=== PATIENT | male | born 1955 | race Two or more races ===

== ENCOUNTER 2023-05-14 21:27 | Emergency (ER) | payer MEDICARE, OTHER ==
[~2023-05-14] VITALS: Ht 175.3 cm; Wt 110.0 kg
[2023-05-15] MEDS ORDERED: ONDANSETRON HCL 4 MG/2 ML VIAL IV ONE ×3 (00:30→03:15)
[2023-05-15] MEDS ORDERED: MORPHINE SULFATE 4 MG/ML SYR/VIAL IV ONE ×2 (00:30→02:00)
[2023-05-15] MEDS ORDERED: METOPROLOL TARTRATE 1MG/1ML-5ML VIAL IV ONE (01:15)
[2023-05-15] MEDS ORDERED: hydrALAZINE HCL 20 MG/ML VL IV ONE (02:00)
[2023-05-15] MEDS ORDERED: dilTIAZem 125mg/125ml BAG KIT 125 ML IV ONE (02:15)
[2023-05-15 02:47] VITALS: PULSE 85; RESP 18; O2SAT 93
[2023-05-15] MEDS ORDERED: levETIRAcetam 500 MG/5ML INJ IV ONE (02:51)
[2023-05-15 02:56] LABS: Alanine Aminotransferase 30 U/L (7-40); Albumin 3.9 g/dL (3.2-4.8); Alkaline Phosphatase 104 U/L (46-116); Anion Gap 5.5 (5-15); Aspartate Aminotransferase 39 U/L (13-40); Blood Alcohol < 3.0 mg/dL (<10); Blood Urea Nitrogen 15 mg/dL (9-23); Calcium 8.3 mg/dL (8.7-10.4); Carbon Dioxide 23.5 mmol/L (20-30); Chloride 109 mmol/L (98-107); Glucose 175 mg/dL (74-106); Magnesium 1.7 mg/dL (1.6-2.6); Potassium 3.9 mmol/L (3.5-5.1); Sodium 138 mmol/L (136-145)
[2023-05-15 02:57] LABS: Basophils # (auto) 0 10 ^3/uL (0-0.2); Basophils % (auto) 0.2 % (0.0-2.0); Bilirubin, Total 0.6 mg/dL (0.2-1.0); Eosinophils # (auto) 0 10 ^3/uL (0-0.8); Hematocrit 40.7 % (41.0-53.0); Hemoglobin 13.1 g/dL (13.5-17.5); Lymphocytes # (auto) 0.9 10 ^3/uL (0.4-5.4); Lymphocytes % (auto) 5.4 % (10.0-50.0); Mean Corpuscular Hemoglobin 28.2 pg (28.0-32.0); Mean Corpuscular Hgb Conc. 32.2 g/dL (32.0-36.0); Mean Corpuscular Volume 87.5 fL (80.0-100.0); Monocytes # (auto) 0.8 10 ^3/uL (0-1.3); Monocytes % (auto) 5.1 % (0.0-12.0); Neutrophils # (auto) 14.5 10 ^3/uL (1.6-8.6); Neutrophils % (auto) 89.3 % (37.0-80.0); Red Blood Cells 4.66 10^6/uL (4.5-5.90); Red Cell Distribution Width 15.4 % (11.8-14.3); Total Protein 6.6 g/dL (5.7-8.2); White Blood Cell 16.2 10^3/uL (4.4-10.8)
[2023-05-15 03:10] LABS: COVID19 ANTIGEN SOFIA FIA NEGATIVE (NEGATIVE)
[2023-05-15 03:11] LABS: INR 1.11 (0.9-1.15); Partial Thromboplastin Time 26.5 SEC (24.5-34.5); Prothrombin Time 11.6 sec (9.3-11.8)
[2023-05-15] MEDS ORDERED: HYDROmorphone HCL 2 MG/ML VL/or syr IV ONE (03:15)
[2023-05-15 03:16] VITALS: BP 160/119; PULSE 93; RESP 18; TEMP 98.5; O2SAT 96
== END 2023-05-15 03:43 | disposition short-term general hospital (02) ==
LOC: EDBD 21:27 → ER 21:32
DX: S22.32XA Fracture of one rib, left side, initial encounter for closed fracture (principal); S01.91XA Laceration without foreign body of unspecified part of head, initial encounter; R07.89 Other chest pain; R06.02 Shortness of breath; E11.9 Type 2 diabetes mellitus without complications; I10 Essential (primary) hypertension; E78.5 Hyperlipidemia, unspecified; R51.9 Headache, unspecified; M54.2 Cervicalgia; Z88.6 Allergy status to analgesic agent; V19.49XA Pedal cycle driver injured in collision with other motor vehicles in traffic accident, initial encounter; Y93.89 Activity, other specified; Y92.488 Other paved roadways as the place of occurrence of the external cause; Y99.8 Other external cause status
CPT/HCPCS: 36415; 70450; 71045; 71250; 72125; 73030; 74176; 80053; 80320; 83735; 85025; 85610; 85730; 87426; 96365; 96368; 96375; 96376; 99285; J0360; J1170; J1953; J2270; J2405; J7060

== ENCOUNTER 2023-05-19 14:14 | Emergency (ER) | payer MEDICARE ==
[~2023-05-19] VITALS: Ht 175.3 cm; Wt 104.5 kg
[2023-05-19 14:30] VITALS: BP 114/77; PULSE 108; RESP 18; O2SAT 96
[2023-05-19] MEDS ORDERED: SODIUM CHLORIDE 0.9% 1,000 ML IV ONE (14:30)
[2023-05-19 15:27] LABS: Basophils # (auto) 0.1 10 ^3/uL (0-0.2); Basophils % (auto) 0.6 % (0.0-2.0); Eosinophils # (auto) 0.3 10 ^3/uL (0-0.8); Eosinophils % (auto) 2.3 % (0.0-7.0); Hematocrit 43.6 % (41.0-53.0); Hemoglobin 14.2 g/dL (13.5-17.5); Lymphocytes # (auto) 1.9 10 ^3/uL (0.4-5.4); Lymphocytes % (auto) 15.3 % (10.0-50.0); Mean Corpuscular Hemoglobin 28.6 pg (28.0-32.0); Mean Corpuscular Hgb Conc. 32.5 g/dL (32.0-36.0); Mean Corpuscular Volume 87.8 fL (80.0-100.0); Monocytes # (auto) 1.1 10 ^3/uL (0-1.3); Monocytes % (auto) 8.9 % (0.0-12.0); Neutrophils % (auto) 72.9 % (37.0-80.0); Nucleated Red Blood Cells % 0.1 %; Red Blood Cells 4.97 10^6/uL (4.5-5.90); Red Cell Distribution Width 14.8 % (11.8-14.3); White Blood Cell 12.3 10^3/uL (4.4-10.8)
[2023-05-19 15:50] LABS: Alanine Aminotransferase 38 U/L (7-40); Albumin 4.2 g/dL (3.2-4.8); Alkaline Phosphatase 113 U/L (46-116); Anion Gap 9.9 (5-15); Aspartate Aminotransferase 28 U/L (13-40); BUN/Creatinine Ratio 23.8 (10.0-20.0); Bilirubin, Total 1.2 mg/dL (0.2-1.0); Blood Urea Nitrogen 31 mg/dL (9-23); Calcium 9.2 mg/dL (8.5-10.1); Carbon Dioxide 26.1 mmol/L (20-30); Chloride 99 mmol/L (98-107); Glucose 183 mg/dL (74-106); Potassium 3.9 mmol/L (3.5-5.1); Sodium 135 mmol/L (136-145)
== END 2023-05-19 20:42 | disposition left against medical advice (07) ==
LOC: ER 14:14
DX: M79.644 Pain in right finger(s) (principal); R53.1 Weakness; R51.9 Headache, unspecified; Z53.21 Procedure and treatment not carried out due to patient leaving prior to being seen by health care provider
CPT/HCPCS: 36415; 70450; 71045; 80053; 84484; 85025